=== PATIENT | male | born 1980 | race Caucasian/White ===

== ENCOUNTER 2020-09-27 10:29 | Day surgery (SDC) | payer OTHER ==
[~2020-09-27] VITALS: Ht 170.2 cm; Wt 84.5 kg
[~2020-09-27 10:29] MED LIST: LIDOCAINE 2% 100MG/5ML SDV (FOR ANES.) As Ordered ONE; NS 1,000 ML IV ONE; OMEP40CA97 PO
[2020-09-27] MEDS ORDERED: propofoL 200 MG/20 ML VIAL As Ordered ONE ×2 (10:53→10:54)
--- NOTE | 2020-09-27 11:23 | ROOR ---
Patient Name: Leandro Burrows Procedure Date: 09/27/2020 10:57 AM Date of : 1980 Age: 40 Room: [facility] Gender: Male Note Status: Finalized Procedure: Upper Endoscopy + Biopsies + Balloon Dilatation Indications: Dysphagia Providers: Mundo Padron MD Referring MD: EMI WATKINS MD Requesting Provider: Medicines: Monitored Anesthesia Care Complications: No immediate complications. Procedure: Pre-Anesthesia Assessment: - The heart rate, respiratory rate, oxygen saturations, blood pressure, adequacy of pulmonary ventilation, and response to care were monitored throughout the procedure. The Endoscope was introduced through the mouth, and advanced to the second part of duodenum. The upper GI endoscopy was accomplished without difficulty. The patient tolerated the procedure well. Findings: The Z-line was regular and was found 40 cm from the incisors. A small hiatal hernia was present. A TTS dilator was passed through the scope. Dilation with a 15-16.5-18 mm balloon dilator was performed to 18 mm in the entire esophagus. Mucosal changes including ringed esophagus were found in the lower third of the esophagus. Biopsies were obtained from the proximal and distal esophagus with cold forceps for histology of suspected eosinophilic esophagitis. No other significant abnormalities were identified in a careful examination of the stomach. The exam of the duodenum was otherwise normal. Impression: - Z-line regular, 40 cm from the incisors. - Small hiatal hernia. - Esophageal mucosal changes suggestive of eosinophilic esophagitis. Biopsied. - Dilation performed in the entire esophagus. - The examination was otherwise normal. Recommendation: - Patient has a contact number available for emergencies. The signs and symptoms of potential delayed complications were discussed with the patient. Return to normal activities tomorrow. Written discharge instructions were provided to the patient. - High fiber diet. - Discharge patient to home. - Continue present medications. - Await pathology results. - Telephone GI clinic for pathology results in 1 week. - Return to referring physician. - The findings and recommendations were discussed with the patient. Mundo Padron MD Mundo Padron MD 09/27/2020 11:23:32 AM Electronically signed by Mundo Padron MD Number of Addenda: 0 Note Initiated On: 09/27/2020 10:57 AM Estimated Blood Loss: Estimated blood loss: none.
[2020-09-27 11:50] VITALS: BP 119/84
== END 2020-09-27 11:57 | disposition home or self-care (01) ==
LOC: M OPP 10:29
PROVIDERS: ATTEND Internal Medicine Gastroenterology
DX: K44.9 Diaphragmatic hernia without obstruction or gangrene (principal); K22.8 Other specified diseases of esophagus; K21.9 Gastro-esophageal reflux disease without esophagitis; R13.10 Dysphagia, unspecified; F17.220 Nicotine dependence, chewing tobacco, uncomplicated